=== PATIENT | female | born 1990 | race Caucasian/White ===

== ENCOUNTER 2022-10-14 09:32 | Emergency (ER) | payer BC, SELFPAY ==
--- NOTE | 2022-10-14 09:35 | ED.FEMALEGU ---
HPI - Female Genitourinary General Chief complaint: Urogenital-Female Stated complaint: uti symptoms Time Seen by Provider: 10/14/22 09:35 Source: patient Mode of arrival: ambulatory Limitations: no limitations History of Present Illness HPI Narrative: Francisco is a 32-year-old female patient presenting to the clinic today with complaints of possible UTI. She reports at around 8:15 a.m. this morning she developed left flank plain. States that the pain is currently an 8/10. States the pain is like labor pain that comes and goes in waves. Reports the least amount of pain is 5/10. No history of kidney stones. Denies any urinary symptoms other than the flank pain. Is concerned that she may have a kidney infection. Had her 1st ever urinary tract infection 2 months ago. Last bowel movement was last night and normal for the patient. She denies any fever, chills, nausea, vomiting, or diarrhea. Denies any back injury or any recent heavy lifting. Related Data Home Medications Medication Instructions Recorded Confirmed cetirizine 10 mg capsule (Zyrtec) 10 mg PO DAILY 10/14/22 10/14/22 escitalopram oxalate 10 mg tablet 10 mg PO DAILY 10/14/22 10/14/22 (Lexapro) metformin 500 mg tablet 500 mg PO BID 10/14/22 10/14/22 Allergies Allergy/AdvReac Type Severity Reaction Status Date / Time No Known Allergies Allergy Verified 10/14/22 09:55 Review of Systems Review of Systems: Pertinent positives per HPI. Patient denies any fever, chills, rash, headache, visual changes, dizziness, cough, runny nose, sore throat, shortness of breath, chest pain, palpitations, nausea, vomiting, diarrhea, constipation, abdominal pain, or any urinary issues. PMFSH Comments At the time of my signature, I reviewed and agree with the nursing past medical, surgical, social, and family history. There is no relevant family history pertinent to the patient complaint. Exam Narrative: General: Well-developed, well nourished, in no apparent distress. Head: Normocephalic, atraumatic. Cardio: Regular rate and rhythm, s1 and s2 normal, no murmur appreciated. Resp: Clear to auscultation bilaterally, no rhonchi, rales, wheezing or rubs. Abdomen: Soft, pliable, bowel sounds present in all quadrants, non-tender to palpation, no organomegly, + left CVAT tenderness. Course Course Emergency Course: Portions of this record may have been created with voice recognition software. Level of Care: Express Care Visit Vital Signs Vital signs: Vital signs reviewed Transfer Transfered to: [facility] Transportation: Other (Private car) Transfer rationale: Left flank pain, hematuria, rule out ureteral lithiasis Accepting physician: Dr. Briscoe Transfer comments: Transfer via private car. MDM - Female Genitourinary MDM Narrative Medical decision making narrative: At the time of visit patient is resting comfortably on the exam table. UA was obtained and shows a trace of leukocytes and a trace of intact blood. I am suspicious that the patient may have a ureterolithiasis. Recommend transfer to the ER for further evaluation. Patient agrees and would like to go to [facility] in [place], [place]. Contacted Rodger CONDE in the ER and report was given for continuity of care. Dr. Briscoe accepts patient for transfer. Patient able to drive herself via private car. Currently rating pain 5/10. Differential Diagnosis Differential diagnosis: Likely urinary tract infection, cystitis and other (Pyelonephritis, urolithiasis, nephrolithiasis) Discharge Plan Discharge Clinical Impression: Acute left flank pain, Hematuria Patient Disposition: Home, Self-Care Condition: Stable Instructions: Antibiotic Form Additional Instructions: Prescriptions: No Action metformin 500 mg Tablet 500 mg PO BID escitalopram oxalate [Lexapro] 10 mg Tablet 10 mg PO DAILY Zyrtec 10 mg Capsule 10 mg PO DAILY Follow-up/Refe
[2022-10-14 09:49] VITALS: BP 108/71; PULSE 61; RESP 18; TEMP 36; O2SAT 99
== END 2022-10-14 10:05 | disposition short-term general hospital (02) ==
PROVIDERS: Emergency Provider Nurse Practitioner Family; PCP Family Medicine
DX: R10.9 Unspecified abdominal pain (principal); R31.9 Hematuria, unspecified
CPT/HCPCS: 81003; 99202; G0463